=== PATIENT | female | born 1990 | race Caucasian/White ===

== ENCOUNTER 2017-03-28 15:07 | Emergency (ER) | payer SELFPAY ==
[2017-03-28 15:07] VITALS: O2SAT 99
[2017-03-28 16:07] VITALS: RESP 20; TEMP 99.4
[2017-03-28] MEDS ORDERED: HYDROXYZINE HYDROCHLORIDE 25 MG/ML SOL IM ONE (16:34)
[2017-03-28 16:52] LABS: BASOPHILS % (AUTO) 0 % (0-3); EOSINOPHILS % (AUTO) 1 % (0-9); HEMATOCRIT 42 % (35-47); MEAN CORPUSCULAR HGB CONC 33.7 gm/dl (32.0-36.0); MEAN CORPUSCULAR VOLUME 88 fL (81-99); MONOCYTES % (AUTO) 3.9 % (0-12); NEUTROPHILS % (AUTO) 80.1 % (37-80)
[2017-03-28 17:13] LABS: CALCIUM 8.5 mg/dl (8.5-10.1); POTASSIUM 3.1 mMol/L (3.5-5.1); THYROID STIMULATING HORMONE 1.446 uIU/ml (0.358-3.740)
[2017-03-28 18:03] VITALS: BP 99/72; PULSE 108
== END 2017-03-28 17:48 | disposition home or self-care (01) | DRG 885 ==
LOC: ED 15:07
DX: F33.1 Major depressive disorder, recurrent, moderate (principal); F41.9 Anxiety disorder, unspecified
CPT/HCPCS: 36415; 80048; 84443; 85025; 99283

== ENCOUNTER 2018-10-25 22:01 | Emergency (ER) | payer MEDICAID, OTHER ==
[2018-10-25 22:32] LABS: BASOPHILS % (AUTO) 1 % (0-3); EOSINOPHILS % (AUTO) 1 % (0-9); HEMATOCRIT 37 % (35-47); HEMOGLOBIN 12.4 gm/dl (12.0-15.5); LYMPHOCYTES % (AUTO) 17.1 % (10-50); MEAN CORPUSCULAR HEMOGLOBIN 30.7 pg (27.0-32.0); MEAN CORPUSCULAR HGB CONC 33.1 gm/dl (32.0-36.0); MEAN CORPUSCULAR VOLUME 93 fL (81-99); MONOCYTES % (AUTO) 5.3 % (0-12); NEUTROPHILS % (AUTO) 75.9 % (37-80)
[2018-10-25 22:39] LABS: INR 0.92 (0.87-1.13)
[2018-10-25] MEDS ORDERED: SODIUM CHLORIDE 0.9% FLUSH 10 ML SOL IV PRN (22:43)
[2018-10-25] MEDS ORDERED: LACTATED RINGERS 1,000 ML IV ONE (22:43)
[2018-10-25 22:44] LABS: ALBUMIN 2.8 gm/dl (3.4-5.0); BILIRUBIN,TOTAL 0.3 mg/dl (0.2-1.0); CALCIUM 8.7 mg/dl (8.5-10.1); CARBON DIOXIDE 21.9 mEq/L (21-32); CREATININE 0.59 mg/dl (0.60-1.00); TOTAL PROTEIN 6.4 gm/dl (6.4-8.2)
[2018-10-25] MEDS ORDERED: PANTOPRAZOLE SODIUM 40 MG ECT PO ONE ×2 (23:01→23:05)
[2018-10-25 23:02] VITALS: RESP 20
[2018-10-25 23:09] LABS: APPEARANCE,URINE Slightly Cloudy; BILIRUBIN,URINE NEGATIVE (NEGATIVE); COLOR,URINE Yellow; GLUCOSE, URINE (UA) NEGATIVE (NEGATIVE); KETONES,URINE 1+ (NEGATIVE); LEUKOCYTE ESTERASE ,URINE NEGATIVE (NEGATIVE); NITRATE,URINE NEGATIVE (NEGATIVE); OCCULT BLOOD,URINE NEGATIVE (NEG-TRACE); UROBILINOGEN,URINE 0.2 (0.2-1.0 EU)
[2018-10-25 23:19] LABS: BACTERIA 2+ (< 1+); CRYSTALS NEGATIVE (0-3 AVE/HPF); RBC,URINE 0-3 (0-3AV/HPF); WBC,URINE 0-4 (0-5AV/HPF)
[2018-10-25] MEDS ORDERED: METOCLOPRAMIDE HYDROCHLORIDE 5 MG/ML SOL IV ONE (23:19)
[2018-10-25] MEDS ORDERED: AMOXICILLIN 250 MG CAP PO SCH (23:45)
[2018-10-25] MEDS ORDERED: AMOXICILLIN 250 MG CAP PO ONE (23:59)
[2018-10-26] MEDS ORDERED: AMOXICILLIN(FRIDGE) 125/5 ML BOTTLE PO ONE (00:05)
[2018-10-26] MEDS ORDERED: METOCLOPRAMIDE HYDROCHLORIDE 5 MG/ML SOL ONE (00:05)
[2018-10-26] MEDS ORDERED: AMOXICILLIN 125/5 ML BOTTLE ONE (00:07)
[2018-10-26 00:29] VITALS: BP 136/77; PULSE 94; TEMP 98; O2SAT 98
[2018-10-26 14:24] LABS: *PROTEIN URINE RANDOM 15.8 mg/dL (1.0-14.0)
== END 2018-10-26 00:25 | disposition home or self-care (01) | DRG 392 ==
LOC: ED 22:01
DX: R10.9 Unspecified abdominal pain (principal); Z3A.31 31 weeks gestation of pregnancy
CPT/HCPCS: 59025; 80053; 81001; 85025; 85610; 86140; 87088; 87210; 96365; 96374; 99283; 99285; J2765; A9270-GY

== ENCOUNTER 2018-10-27 12:56 | Inpatient (IN) | payer OTHER ==
[2018-10-27] MEDS ORDERED: SODIUM CHLORIDE 0.9% 1000ML 1,000 ML IV ONE (12:59)
[2018-10-27] MEDS ORDERED: ACETAMINOPHEN 500 MG 500 MG TAB PO PRN (13:01)
[2018-10-27] MEDS ORDERED: PIPERACILLIN/TAZOBACT 3.375 GM PDS IV ONE ×2 (13:32→21:15)
[2018-10-27] MEDS ORDERED: SODIUM CHLORIDE 0.9% 100 ML 100 ML IV ONE ×2 (13:32→21:15)
[2018-10-27] MEDS: PROMETHAZINE HYDROCHLORIDE 25 MG/ML SOL IV PRN ×2 (13:39→17:54)
[2018-10-27] MEDS: PANTOPRAZOLE SODIUM 40 MG/10 ML PDS IV SCH (13:39)
[2018-10-27] MEDS: SODIUM CHLORIDE 0.9% FLUSH 10 ML SOL IV PRN (13:40)
[2018-10-27] MEDS: PIPERACILLIN/TAZOBACT 3.375 GM 3.375 GM in SODIUM CHLORIDE 0.9% 100 ML 100 ML IV SCH ×2 (13:40→21:21)
[2018-10-27] MEDS: HYDROMORPHONE 1 MG/ML SYRINGE IV PRN ×3 (15:02→23:21)
[2018-10-27] MEDS: SODIUM CHLORIDE 0.9% 1000ML 1,000 ML IV SCH ×2 (15:07→21:21)
[2018-10-27] MEDS ORDERED: HYDROMORPHONE HCL 2 MG/ML SOL IV SCH (17:30)
[2018-10-27] MEDS: METOCLOPRAMIDE HYDROCHLORIDE 5 MG/ML SOL IV PRN (20:53)
[2018-10-28] MEDS: PANTOPRAZOLE SODIUM 40 MG/10 ML PDS IV SCH ×2 (01:06→12:36)
[2018-10-28] MEDS: HYDROMORPHONE 1 MG/ML SYRINGE IV PRN ×8 (01:58→23:05)
[2018-10-28] MEDS: PROMETHAZINE HYDROCHLORIDE 25 MG/ML SOL IV PRN ×4 (02:09→23:09)
[2018-10-28] MEDS: SODIUM CHLORIDE 0.9% 1000ML 1,000 ML IV SCH ×5 (04:39→23:56)
[2018-10-28] MEDS ORDERED: PIPERACILLIN/TAZOBACT 3.375 GM PDS IV ONE ×3 (05:36→20:42)
[2018-10-28] MEDS ORDERED: SODIUM CHLORIDE 0.9% 100 ML 100 ML IV ONE ×3 (05:36→20:42)
[2018-10-28] MEDS: PIPERACILLIN/TAZOBACT 3.375 GM 3.375 GM in SODIUM CHLORIDE 0.9% 100 ML 100 ML IV SCH ×3 (05:58→20:52)
[2018-10-28 07:19] LABS: BASOPHILS % (AUTO) 1 % (0-3); EOSINOPHILS % (AUTO) 1 % (0-9); HEMATOCRIT 35 % (35-47); HEMOGLOBIN 11.6 gm/dl (12.0-15.5); LYMPHOCYTES % (AUTO) 11.8 % (10-50); MEAN CORPUSCULAR HEMOGLOBIN 30.8 pg (27.0-32.0); MEAN CORPUSCULAR HGB CONC 32.8 gm/dl (32.0-36.0); MEAN CORPUSCULAR VOLUME 94 fL (81-99)
[2018-10-28 07:21] LABS: CALCIUM 7.5 mg/dl (8.5-10.1); CARBON DIOXIDE 11.4 mEq/L (21-32); CREATININE 0.52 mg/dl (0.60-1.00); CRP INFLAMMATORY 6.93 mg/dl (0.00-0.33)
[2018-10-28] MEDS: METOCLOPRAMIDE HYDROCHLORIDE 5 MG/ML SOL IV PRN (08:31)
[2018-10-28] MEDS: SODIUM CHLORIDE 0.9% FLUSH 10 ML SOL IV PRN (13:43)
[2018-10-29] MEDS: SODIUM CHLORIDE 0.9% FLUSH 10 ML SOL IV PRN (00:24)
[2018-10-29] MEDS: PANTOPRAZOLE SODIUM 40 MG/10 ML PDS IV SCH (00:24)
[2018-10-29] MEDS ORDERED: HYDROMORPHONE 1 MG/ML SYRINGE ONE ×2 (03:12→08:04)
[2018-10-29] MEDS: PROMETHAZINE HYDROCHLORIDE 25 MG/ML SOL IV PRN (03:17)
[2018-10-29] MEDS: HYDROMORPHONE 1 MG/ML SYRINGE IV PRN ×2 (03:17→08:11)
[2018-10-29] MEDS: SODIUM CHLORIDE 0.9% 1000ML 1,000 ML IV SCH ×2 (04:10→07:57)
[2018-10-29] MEDS ORDERED: SODIUM CHLORIDE 0.9% 100 ML 100 ML IV ONE (05:06)
[2018-10-29] MEDS ORDERED: PIPERACILLIN/TAZOBACT 3.375 GM PDS IV ONE (05:06)
[2018-10-29] MEDS: PIPERACILLIN/TAZOBACT 3.375 GM 3.375 GM in SODIUM CHLORIDE 0.9% 100 ML 100 ML IV SCH (05:14)
[2018-10-29 07:12] LABS: CALCIUM 7.1 mg/dl (8.5-10.1); CARBON DIOXIDE 10.1 mEq/L (21-32); CREATININE 0.5 mg/dl (0.60-1.00); CRP INFLAMMATORY 6.29 mg/dl (0.00-0.33)
[2018-10-29 07:17] LABS: BASOPHILS % (AUTO) 1 % (0-3); EOSINOPHILS % (AUTO) 1 % (0-9); HEMATOCRIT 32 % (35-47); HEMOGLOBIN 10.8 gm/dl (12.0-15.5); LYMPHOCYTES % (AUTO) 13.2 % (10-50); MEAN CORPUSCULAR HEMOGLOBIN 31.3 pg (27.0-32.0); MEAN CORPUSCULAR HGB CONC 33.4 gm/dl (32.0-36.0); MEAN CORPUSCULAR VOLUME 94 fL (81-99); MONOCYTES % (AUTO) 11.9 % (0-12); NEUTROPHILS % (AUTO) 73.3 % (37-80)
[2018-10-29 07:51] VITALS: RESP 22
[2018-10-29] MEDS ORDERED: SODIUM CHLORIDE 0.9% 1000ML 1,000 ML IV SCH (08:00)
[2018-10-29 08:16] VITALS: BP 117/80; PULSE 108; TEMP 97.9
[2018-10-29 08:17] VITALS: O2SAT 98
== END 2018-10-29 09:39 | disposition short-term general hospital (02) | DRG 392 ==
LOC: ACUTE CARE 12:56
PROVIDERS: ADMIT Family Medicine; ATTEND Family Medicine
DX: R10.9 Unspecified abdominal pain (principal); Z3A.30 30 weeks gestation of pregnancy; R11.0 Nausea; E86.0 Dehydration; D72.829 Elevated white blood cell count, unspecified
CPT/HCPCS: 36415; 74181; 80048; 83690; 85025; 86140; 94762; 99070; J2543; J2550; J2765; J1170